=== PATIENT | female | born 1940 | race Two or more races ===

== ENCOUNTER → 2024-02-02 | Outpatient (CLI) | payer OTHER | END | disposition home or self-care (01) | LOC: WOUND MED 08:45 | PROVIDERS: ATTEND Specialist | DX: L02.413 Cutaneous abscess of right upper limb (principal) | CPT/HCPCS: 11042; A4927; A6199; A6219; A6223 ==

== ENCOUNTER 2024-02-05 12:54 | Outpatient (CLI) | payer OTHER | END 2024-02-05 12:56 | disposition home or self-care (01) | LOC: RAD 12:54 | PROVIDERS: ATTEND Physical Medicine & Rehabilitation | DX: M25.561 Pain in right knee (principal) ==